=== PATIENT | male | born 1995 | race Caucasian/White ===

== ENCOUNTER 2016-05-12 12:09 | Emergency (ER) | payer SELFPAY ==
[2016-05-12] MEDS ORDERED: HYDROcodone/Acetaminophen 10/325 mg Tablet ONE (13:02)
[2016-05-12] MEDS ORDERED: Ibuprofen 800 MG TAB ONE (13:03)
--- NOTE | 2016-05-12 14:14 | ERRECORD ---
[facility] EMERGENCY RECORD HPI COUGH (12:57 RWAG) CHIEF COMPLAINT: Patient presents for evaluation of cough. HISTORIAN: History provided by patient, "think I have the flu". LOCATION: Symptoms are generalized. QUALITY: Unable to describe the quality of the pain. SEVERITY: Maximum severity of symptoms mild, Currently symptoms are mild, Maximum severity of pain rated as 9/10, Current severity of pain rated as 9/10, pt calm, NAD. TIME COURSE: Patient unable to describe onset of symptoms, There has been no change in the patient's symptoms over time. ASSOCIATED WITH: Associated with chills, Associated with fever. EXACERBATED BY: Patient's condition exacerbated by nothing. RELIEVED BY: Patient's condition relieved by nothing. ROS (12:58 RWAG) CONSTITUTIONAL: Historian reports fever. EYES: Negative eye review of systems. ENT: Negative ears, nose, throat review of systems. CARDIOVASCULAR: Negative cardiovascular review of systems. RESPIRATORY: Historian reports cough. GI: Negative gastrointestinal review of systems. GENITOURINARY MALE: Negative genitourinary review of systems. MUSCULOSKELETAL: Historian reports myalgias. SKIN: Negative skin review of systems. NEUROLOGIC: Negative neurologic review of systems. ENDOCRINE: Negative endocrine review of systems. HEMO/LYMPHATIC: Normal hematologic/lymphatic system review. ALLERGIC/IMMUNOLOGIC: Normal allergy/immunologic system review. PSYCHIATRIC: Negative psychiatric review of systems. NOTES: All systems reviewed, negative except as described above. PAST MEDICAL HISTORY (12:44 JPAR) MEDICAL HISTORY: Flu vaccine not up to date, Tetanus immunization up to date, Date of immunization: 2016, Pneumococcal vaccine not up to date. MALE SURGICAL HISTORY: Hand surgery, Testicular Torsion. SOCIAL HISTORY: Patient drinks socially, twice a month, Alcohol history notes: 6 pack, Patient is a former drug user, abused marijuana, Patient currently uses tobacco, smokes cigarettes, daily, Patient has smoked for 5 years, Patient smokes 1 pack per day. KNOWN ALLERGIES traMADol: Severity: Mild, Source: Patient, - makes headaches worse CURRENT MEDICATIONS &a-1R&a+25V*p+0X*p2522P*c202B*c15G*c2P*p-0X&a-25V&a+1R Name: Delano Cordero Eliseo : 1995 [facility] MedRec: [id number] AcctNum: [id number] Prepared: Sat May 12, 2016 14:12 by Interface Page 1 of 3 pMD [facility] EMERGENCY RECORD No recorded medications VITAL SIGNS (12:39 JPAR) VITAL SIGNS: BP: 140/84, Pulse: 94, Resp: 16, Temp: 100 (Oral), Pain: 9, O2 sat: 97, Time: 05/12/2016 12:39. PHYSICAL EXAM (12:59 RWAG) CONSTITUTIONAL: Patient febrile, temperature of 100, Pulse normal, Blood pressure normal, Respiratory rate normal, Normal pulse oximetry. HEAD: Head exam normal. EYES: Eye exam normal. ENT: ENT exam normal. NECK: Neck exam normal. RESPIRATORY CHEST: Respiratory and chest exam normal. CARDIOVASCULAR: Cardiovascular assessment normal. ABDOMEN MALE: Abdominal exam normal. BACK: Back exam normal. UPPER EXTREMITY: Upper extremity exam normal. NEURO: Neuro exam normal. SKIN: Skin exam normal. LYMPHATIC: Lymphatic exam normal. PSYCHIATRIC: Psychiatric exam normal. MEDICATION ADMINISTRATION SUMMARY Drug Name: Motrin, Dose Ordered: 1 tab(s), Route: Oral, Status: Given, Time: 13:05 05/12/2016, Drug Name: Rochelle, Dose Ordered: 1 tab(s), Route: Oral, Status: Given, Time: 13:05 05/12/2016, Detailed record available in Medication Service section. PROBLEM LIST No recorded problems DIAGNOSIS (13:37 RWAG) FINAL: PRIMARY: influenza. PRESCRIPTION Tamiflu: CAPSULE : 75 mg : ORAL : Quantity: 1 Unit: cap(s) Route: ORAL Schedule: every 12 hours Dispense: 10 Unit: cap(s) May substitute. Refills: No Refills . (13:35 RWAG) NOTES: No Refills. (13:35 RWAG) Motrin: TABLET : 800 mg : ORAL : Quantity: 1 Unit: tab(s) Route: ORAL Schedule: every 8 hours PRN Dispense: 12 Unit: tab(s) May substitute. Refills: No Refills . (13:36 RWAG) NOTES: No Refills. (13:36 RWAG) &a-1R&a+25V*p+0X*e0512T*c202B*c15G*c2P*p-0X&a-25V&a+1R Name: Delano Cordero : 1995 M21 MedRec: [id number] AcctNum: [id number] Prepared: Evan May 12, 2016 14:12 by Interface Page 2 of 3 pMD [facility] EMERGENCY RECORD DISPOSITION PATIENT: Disposition Type: Discharge, Disposition: *Discharge Home, Disposition Transport: Car, Condition: Improved. (13:37 RWAG) Patient left the department. (14:05 MARY) Steiner: MARY=HARLEEN Montes Jason RWAG=MD Milton, Arcadio &a-1R&a+25V*p+0X*n1859F*c202B*c15G*c2P*p-0X&a-25V&a+1R Name: Delano Cordero : 1995 M21 MedRec: [id number] AcctNum: [id number] Prepared: Evan May 12, 2016 14:12 by Interface Page 3 of 3 pMD MTDD
--- NOTE | 2016-05-12 14:21 | PICIS ---
[facility] EMERGENCY RECORD TRIAGE ([facility] May 12, 2016 12:41 JPAR) TRIAGE NOTES: flu Like symptoms/ URI symptoms. ([facility] May 12, 2016 12:41 JPAR) PATIENT: NAME: Delano Cordero, AGE: 21, GENDER: male, : [facility] 1995, TIME OF GREET: Sat May 12, 2016 12:10, PREFERRED LANGUAGE: Arabic, ECODE BILLING MAP: [facility], SSN: [id number], Zip Code: [address], KG WEIGHT: 58.97, PHONE: , , , PERSON ID: [id number]. ([facility] May 12, 2016 12:41 JPAR) COMPLAINT: COUGH,CONGESTION. ([facility] May 12, 2016 12:41 JPAR) ADMISSION: URGENCY: 4 Non Urgent, ADMISSION SOURCE: Home, TRANSPORT: CAR, BED: TRIAGE. ([facility] May 12, 2016 12:41 JPAR) ASSESSMENT: Assessment: URI and Flu Like Symptoms, Symptoms began 2-3 days, Symptoms began 3 days ago. (12:44 JPAR) SIRS SCORING: Heart Rate 55-109 (0), Temp range 96.8-101.1 (0), respiratory rate 12-24 (0), Mental Status altered: no (0), Infection or Suspected Infection: No. (12:44 JPAR) TRIAGE SCREENING: Patient denies suicidal ideation, Patient denies presence of domestic violence. (12:44 JPAR) PROVIDERS: TRIAGE NURSE: Arnie Montes RN. ([facility] May 12, 2016 12:41 JPAR) VITAL SIGNS: BP 140/84, Pulse 94, Resp 16, Temp 100, (Oral), Pain 9, O2 Sat 97, Time 05/12/2016 12:39. (12:39 JPAR) KNOWN ALLERGIES traMADol: Severity: Mild, Source: Patient, - makes headaches worse CURRENT MEDICATIONS No recorded medications VITAL SIGNS (12:39 JPAR) VITAL SIGNS: BP: 140/84, Pulse: 94, Resp: 16, Temp: 100 (Oral), Pain: 9, O2 sat: 97, Time: 05/12/2016 12:39. NURSING ASSESSMENT: HEAD-TO-TOE (13:00 MCBE) CONSTITUTIONAL: Complex assessment performed, Patient arrives ambulatory, Gait steady, History obtained from patient, Patient appears comfortable, Patient cooperative, Patient alert, Oriented to person, place and time, Skin warm, Skin dry, Skin normal in color, Mucous membranes pink, Mucous membranes moist, Patient is well-groomed. PAIN: Patient rates pain as 0 out of 10. NEURO: Pupils equally round and reactive to light, Able to close eyes, Face symmetrical, Speech normal, GCS:, Eye opening: (4) - Spontaneous, Verbal: (5) - Oriented/conversive, Motor: (6) - Obeys commands/Spontaneous, GCS Total: 15. ENT: Ear assessment findings include ear normal to inspection, Nasal assessment findings include nose normal to inspection, Mouth and throat assessment findings include mouth inspection normal. &a-1R&a+25V*p+0X*m2321D*c202B*c15G*c2P*p-0X&a-25V&a+1R Name: Delano Cordero Eliseo : 1995 M21 MedRec: [id number] AcctNum: [id number] Prepared: Sat May 12, 2016 14:18 by Interface Page 1 of 7 pMD [facility] EMERGENCY RECORD RESPIRATORY/CHEST: Breath sounds clear, Respiratory assessment findings include respiratory effort easy, Respirations regular, Conversing normally, Neck and chest exam findings include trachea midline, Chest expansion equal, Chest movement symmetrical, no signs of distress, no retractions noted. CARDIOVASCULAR: Cardiovascular assessment findings include heart rate normal, Heart rhythm normal sinus, Heart sounds normal, S1, S2, Left radial pulse +3(easily palpated, considered normal), Right radial pulse +3(easily palpated, considered normal). ABDOMEN: Abdomen assessment findings include abdomen symmetrical, Abdomen soft, non-tender, Bowel sound normal, no associated nausea, no associated vomiting, no associated diarrhea, no associated constipation. LEFT UPPER EXTREMITY: Left upper extremity assessment findings include capillary refill less than 2 seconds, Skin color normal to hand, Skin temperature to hand warm, Distal sensation intact, Muscle tone normal, radial pulse is +3, brachial pulse is +3, Inspection findings include: No pressure ulcer to the shoulder, Inspection findings include no pressure ulcer to the elbow, Inspection findings include no pressure ulcer. RIGHT UPPER EXTREMITY: Right upper extremity assessment findings include capillary refill less than 2 seconds, Skin color normal to hand, Skin temperature to hand warm, Distal sensation intact, Muscle tone normal, radial pulse is +3, brachial pulse is +3, Inspection findings include: No pressure ulcer to the shoulder, Inspection findings include no pressure ulcer to the elbow, Inspection findings include no pressure ulcer. LEFT LOWER EXTREMITY: Left lower extremity assessment findings include capillary refill less than 2 seconds, Skin color normal, Skin temperature warm, Distal sensation intact, Muscle tone normal, Inspection findings include no pressure ulcers to the hip, Inspection findings include no pressure ulcer to the sacrum, Inspection findings include no pressure ulcer to the heel, Inspection findings include no pressure ulcer. RIGHT LOWER EXTREMITY: Right lower extremity assessment findings include capillary refill less than 2 seconds, Skin color normal, Skin temperature warm, Distal sensation intact, Muscle tone normal, Inspection findings include no pressure ulcers to the hip, Inspection findings include no pressure ulcer to the sacrum, Inspection findings include no pressure ulcer to the heel, Inspection findings include no pressure ulcer. NURSING PROCEDURE: DISCHARGE NOTE (13:41 JPAR) DISCHARGE: Patient discharged to home, ambulating without assistance, family driving, accompanied by //partner, Summary of Care printed/ provided, Patient requested and was provided an electronic copy of Discharge Instructions, Transition record given to patient, Discharge instructions given to patient, Simple or moderate discharge teaching performed, Prescriptions given and instructions on side effects given, Name of prescription(s) given: &a-1R&a+25V*p+0X*h8994H*c202B*c15G*c2P*p-0X&a-25V&a+1R Name: Delano Cordero : 1995 M21 MedRec: [id number] AcctNum: [id number] Prepared: Sat May 12, 2016 14:18 by Interface Page 2 of 7 pMD [facility] EMERGENCY RECORD Tamiflu and Motrin, Medication reconciliation form given, Above person(s) verbalized understanding of discharge instructions and follow-up care, Patient treated and evaluated by physician. BELONGINGS: Belongings and valuables with patient at time of discharge include:, Belongings remain with patient, Valuables remain with patient. SAFETY: Side rails up, Cart/Stretcher in lowest position, Family at bedside, Call light within reach, Hospital ID band on. NURSING PROCEDURE: ENT PATIENT IDENTIFIER: Patient actively involved in identification process, Patient's identity verified by patient stating name, Patient's identity verified by patient stating date, Patient's identity verified by hospital ID bracelet. (13:06 MCBE) Patient actively involved in identification process, Patient's identity verified by patient stating name, Patient's identity verified by patient stating date, Patient's identity verified by hospital ID bracelet, Patient's identity verified by family member. (12:44 JPAR) ENT: ENT care indicated for specimen collection, Nasal swab collected, labeled in the presence of the patient and sent to lab for testing of, influenza A, influenza B, collected by [employer]. (13:06 MCBE) ENT care indicated for specimen collection, Nasal swab collected, labeled in the presence of the patient and sent to lab for testing of, influenza A, influenza B, collected by [employer]. (12:44 JPAR) SAFETY: Side rails up, Cart/Stretcher in lowest position, Family at bedside, Call light within reach, Hospital ID band on. (12:44 JPAR) ORDER DETAILS Order Name: Influenza A&B Ag Screen, Status: Active, Time: 12:52 05/12/2016, User: [facility], - Ordered for: MD Rose Richard, - Entered by: MD Rose Richard - Sat May 12, 2016 12:52, - Quantity: 1. MEDICATION ADMINISTRATION SUMMARY Drug Name: Motrin, Dose Ordered: 1 tab(s), Route: Oral, Status: Given, Time: 13:05 05/12/2016, Drug Name: Montrose, Dose Ordered: 1 tab(s), Route: Oral, Status: Given, Time: 13:05 05/12/2016, Detailed record available in Medication Service section. MEDICATION SERVICE (13:05 [facility]) Motrin: Order: Motrin (ibuprofen) - Dose: 1 tab(s) : Oral Schedule: Now &a-1R&a+25V*p+0X*h4064B*c202B*c15G*c2P*p-0X&a-25V&a+1R Name: Delano Cordero : 1995 M21 MedRec: [id number] AcctNum: [id number] Prepared: Sat May 12, 2016 14:18 by Interface Page 3 of 7 pMD [facility] EMERGENCY RECORD Ordered by: Arcadio Rose MD Entered by: Arcadio Rose MD [facility] May 12, 2016 13:00 , Acknowledged by: Milana Aguilar [facility] May 12, 2016 13:01 Documented as given by: Milana Aguilar [facility] May 12, 2016 13:05 Patient, Medication, Dose, Route and Time verified prior to administration. Amount given: 1 tab, Site: Medication administered P.O., Patient appears Awake and alert- acceptable, Correct patient, time, route, dose and medication confirmed prior to administration, Patient advised of actions and side-effects prior to administration, Allergies confirmed and medications reviewed prior to administration, Patient in position of comfort, Side rails up, Cart in lowest position, Family at bedside, Call light in reach, verified with ermd about dosages. Montrose: Order: Montrose (hydrocodone bitartrate/acetaminophen) - Dose: 1 tab(s) : Oral POTENTIAL ALLERGY REACTION: 'traMADol [tramadol/tramadol HCl]' - Benefits outweigh risks, Not a true drug allergy, Potential interaction discussed with patient/family Schedule: Now Ordered by: Arcadio Rose MD Entered by: Arcadio Rose MD [facility] May 12, 2016 12:56 , Acknowledged by: Milana Aguilar [facility] May 12, 2016 13:01 Documented as given by: Milana Aguilar [facility] May 12, 2016 13:05 Patient, Medication, Dose, Route and Time verified prior to administration. Amount given: 1 tab, Site: Medication administered P.O., Patient appears Awake and alert- acceptable, Correct patient, time, route, dose and medication confirmed prior to administration, Patient advised of actions and side-effects prior to administration, Allergies confirmed and medications reviewed prior to administration, Patient in position of comfort, Side rails up, Cart in lowest position, Family at bedside, Call light in reach, verified with ermd on dosage. HPI COUGH (12:57 RW) CHIEF COMPLAINT: Patient presents for evaluation of cough. HISTORIAN: History provided by patient, "think I have the flu". LOCATION: Symptoms are generalized. QUALITY: Unable to describe the quality of the pain. SEVERITY: Maximum severity of symptoms mild, Currently symptoms are mild, Maximum severity of pain rated as 9/10, Current severity of pain rated as 9/10, pt calm, NAD. TIME COURSE: Patient unable to describe onset of symptoms, There has been no change in the patient's symptoms over time. ASSOCIATED WITH: Associated with chills, Associated with fever. EXACERBATED BY: Patient's condition exacerbated by nothing. RELIEVED BY: Patient's condition relieved by nothing. &a-1R&a+25V*p+0X*m0669T*c202B*c15G*c2P*p-0X&a-25V&a+1R Name: Delano Cordero : 1995 M21 MedRec: [id number] AcctNum: [id number] Prepared: Sat May 12, 2016 14:18 by Interface Page 4 of 7 pMD [facility] EMERGENCY RECORD ROS (12:58 RWAG) CONSTITUTIONAL: Historian reports fever. EYES: Negative eye review of systems. ENT: Negative ears, nose, throat review of systems. CARDIOVASCULAR: Negative cardiovascular review of systems. RESPIRATORY: Historian reports cough. GI: Negative gastrointestinal review of systems. GENITOURINARY MALE: Negative genitourinary review of systems. MUSCULOSKELETAL: Historian reports myalgias. SKIN: Negative skin review of systems. NEUROLOGIC: Negative neurologic review of systems. ENDOCRINE: Negative endocrine review of systems. HEMO/LYMPHATIC: Normal hematologic/lymphatic system review. ALLERGIC/IMMUNOLOGIC: Normal allergy/immunologic system review. PSYCHIATRIC: Negative psychiatric review of systems. NOTES: All systems reviewed, negative except as described above. PAST MEDICAL HISTORY (12:44 JPAR) MEDICAL HISTORY: Flu vaccine not up to date, Tetanus immunization up to date, Date of immunization: 2015, Pneumococcal vaccine not up to date. MALE SURGICAL HISTORY: Hand surgery, Testicular Torsion. SOCIAL HISTORY: Patient drinks socially, twice a month, Alcohol history notes: 6 pack, Patient is a former drug user, abused marijuana, Patient currently uses tobacco, smokes cigarettes, daily, Patient has smoked for 5 years, Patient smokes 1 pack per day. PHYSICAL EXAM (12:59 RWAG) CONSTITUTIONAL: Patient febrile, temperature of 100, Pulse normal, Blood pressure normal, Respiratory rate normal, Normal pulse oximetry. HEAD: Head exam normal. EYES: Eye exam normal. ENT: ENT exam normal. NECK: Neck exam normal. RESPIRATORY CHEST: Respiratory and chest exam normal. CARDIOVASCULAR: Cardiovascular assessment normal. ABDOMEN MALE: Abdominal exam normal. BACK: Back exam normal. UPPER EXTREMITY: Upper extremity exam normal. NEURO: Neuro exam normal. SKIN: Skin exam normal. LYMPHATIC: Lymphatic exam normal. PSYCHIATRIC: Psychiatric exam normal. EVENTS TRANSFER: Triage to Emergency Triage. (12:41 JPAR) &a-1R&a+25V*p+0X*h7691T*c202B*c15G*c2P*p-0X&a-25V&a+1R Name: Delano Cordero : 1995 M21 MedRec: [id number] AcctNum: [id number] Prepared: Sat May 12, 2016 14:18 by Interface Page 5 of 7 pMD [facility] EMERGENCY RECORD Emergency Triage to Emergency Room -04. (12:42 JPAR) Removed from Emergency Emergency Room -04. (14:05 JPAR) PROBLEM LIST No recorded problems DIAGNOSIS (13:37 RWAG) FINAL: PRIMARY: influenza. DISPOSITION PATIENT: Disposition Type: Discharge, Disposition: *Discharge Home, Disposition Transport: Car, Condition: Improved. (13:37 RWAG) Patient left the department. (14:05 JPAR) INSTRUCTION (13:37 RWAG) DISCHARGE: FLU ADULT. FOLLOWUP: Follow up with Primary Care Physician in 3-4 days. SPECIAL: Follow-up with your PCP. PRESCRIPTION Tamiflu: CAPSULE : 75 mg : ORAL : Quantity: 1 Unit: cap(s) Route: ORAL Schedule: every 12 hours Dispense: 10 Unit: cap(s) May substitute. Refills: No Refills . (13:35 RWAG) NOTES: No Refills. (13:35 RWAG) Motrin: TABLET : 800 mg : ORAL : Quantity: 1 Unit: tab(s) Route: ORAL Schedule: every 8 hours PRN Dispense: 12 Unit: tab(s) May substitute. Refills: No Refills . (13:36 RWAG) NOTES: No Refills. (13:36 RWAG) IMAGING (13:47 JPAR) *DISCHARGE INSTRUCTIONS RECEIPT: Image captured from scanner. *SUPPLY CHARGE SHEET: Image captured from scanner. ADMIN (14:09 RWAG) DIGITAL SIGNATURE: MD Rose Richard. RESULTS (13:33 [facility]) MICROBIOLOGY: Influenza A&B Ag Screen: [id number] Collection DT: Sat May 12, 2016 13:05, See comment below , @ ER ROOM#: ER-04 Source: Nasal swab Spec Desc: , *Influenza A Antigen: POSITIVE for the , * presence of , * INFLUENZA A Antigen , * - H , Influenza B Antigen: NEGATIVE for the , presence of , &a-1R&a+25V*p+0X*o3569T*c202B*c15G*c2P*p-0X&a-25V&a+1R Name: Delano Cordero : 1995 M21 MedRec: [id number] AcctNum: [id number] Prepared: [facility] May 12, 2016 14:18 by Interface Page 6 of 7 pMD [facility] EMERGENCY RECORD INFLUENZA B Antigen , The rapid Flu A&B test can distinguish between influenza A , Influenza A&B Ag Screen See comment below , and B viruses, but it does not differentiate influenza , Influenza A&B Ag Screen See comment below , subtypes. , Influenza A&B Ag Screen See comment below , Influenza A&B Ag Screen See comment below , Influenza A&B Ag Screen See comment below , Influenza A&B Ag Screen See comment below , characteristics of this device with human specimens infected , Influenza A&B Ag Screen See comment below , with the 2008 H1N1 influenza virus have not been , Influenza A&B Ag Screen See comment below , established. For example: this test cannot distinguish , Influenza A&B Ag Screen See comment below , influenza infections caused by novel H1N1 influenza A , Influenza A&B Ag Screen See comment below , viruses versus seasonal influenza A viruses. , Influenza A&B Ag Screen See comment below , , Influenza A&B Ag Screen See comment below , A negative result does not exclude influenza virus , Influenza A&B Ag Screen See comment below , infection; therefore, if more conclusive testing is desired, , Influenza A&B Ag Screen See comment below , follow up confirmatory testing is warranted., Influenza A&B Ag Screen See comment below . Steiner: MARY=HARLEEN Montes Jason MCBE=Milana Aguilar RWAG=MD Rose Richard &a-1R&a+25V*p+0X*j6800H*c202B*c15G*c2P*p-0X&a-25V&a+1R Name: Bret Corderoon Eliseo : 1995 1 MedRec: [id number] AcctNum: [id number] Prepared: Evan May 12, 2016 14:18 by Interface Page 7 of 7 pMD MTDD
== END 2016-05-12 13:41 | disposition home or self-care (01) ==
LOC: NAV ERS 12:09
DX: J11.1 Influenza due to unidentified influenza virus with other respiratory manifestations (principal); F17.210 Nicotine dependence, cigarettes, uncomplicated
CPT/HCPCS: 99283

== ENCOUNTER 2016-05-23 20:03 | Emergency (ER) | payer SELFPAY ==
[2016-05-23] MEDS ORDERED: Ipratropium Bromide 2.5 ml Neb ONE (20:23)
[2016-05-23] MEDS ORDERED: Albuterol Sulfate 2.5 mg/0.5 ml Neb ONE (20:23)
[2016-05-23] MEDS ORDERED: predniSONE 20 MG TAB ONE (20:23)
[2016-05-23] MEDS ORDERED: Acetaminophen 500 MG TAB ONE (20:23)
[2016-05-23] MEDS ORDERED: Ibuprofen 800 MG TAB ONE (21:10)
--- NOTE | 2016-05-23 21:12 | RAD ---
PA AND LATERAL VIEWS CHEST 05/23/16 HISTORY: Cough and fever. FINDINGS: The heart size is normal. The lungs are well expanded without confluent areas of consolidation, pneu mothorax or pleural effusions. No acute osseous abnormalities are seen. IMPRESSION: No acute process. POS: [facility]
--- NOTE | 2016-05-23 22:02 | ERRECORD ---
[facility] EMERGENCY RECORD HPI COUGH (23:09 BLEW) CHIEF COMPLAINT: Patient presents for evaluation of cough. HISTORIAN: History provided by patient, patient diagnosed with flu about 9 days ago. presents due to continued fever and coughing. Some post-tussive vomiting as well. no sputum production. no meds taken currently. No other sx. Fever to 101. LOCATION: Symptoms are generalized. QUALITY: Symptoms described as tightness. SEVERITY: Maximum severity of symptoms moderate, Currently symptoms are moderate. TIME COURSE: Gradual onset of symptoms, are constant. ASSOCIATED WITH: No associated diarrhea, No associated diaphoresis, No associated dyspnea on exertion, Associated with fever, No associated hyperventilation, No associated nausea, No associated orthopnea, No associated palpitations, No associated peripheral edema, No associated pleuritic symptoms, No associated stridor, Associated with upper respiratory infection. EXACERBATED BY: Patient's condition exacerbated by deep breaths, Patient's condition exacerbated by exercise, Patient's condition exacerbated by smoking. RELIEVED BY: Patient's condition relieved by nothing. ROS (23:11 BLEW) CONSTITUTIONAL: Historian reports fever. ENT: Historian denies stridor. CARDIOVASCULAR: Historian denies diaphoresis, denies dyspnea on exertion, denies orthopnea, denies palpitations. RESPIRATORY: Historian reports cough, denies stridor. GI: Historian denies diarrhea, denies nausea. NOTES: All systems reviewed, negative except as described above. PAST MEDICAL HISTORY (20:21 LHAL) MEDICAL HISTORY: Notes: STATES GETS MALIGNANT HYPOTHERMIA AFTER SURGERY, Flu vaccine not up to date, Tetanus immunization up to date, Pneumococcal vaccine not up to date, Past medical history includes musculoskeletal disorder, LEFT FINGER SURGERY, Past medical history includes neurological disease, migraine headaches, Flu vaccine not up to date, Tetanus immunization up to date, Date of immunization: 2016, Pneumococcal vaccine not up to date. MALE SURGICAL HISTORY: Hand surgery, Testicular Torsion. SOCIAL HISTORY: Patient drinks socially, twice a month, Alcohol history notes: 6 pack, Patient is a former drug user, abused marijuana, Patient currently uses tobacco, smokes cigarettes, daily, Patient has smoked for 5 years, Patient smokes 1 pack per day. KNOWN ALLERGIES &a-1R&a+25V*p+0X*[id number]*c202B*c15G*c2P*p-0X&a-25V&a+1R Name: Delano Cordero : 1995 M21 MedRec: [id number] AcctNum: [id number] Prepared: Martha May 24, 2016 08:03 by Interface Page 1 of 3 pMD [facility] EMERGENCY RECORD traMADol: Severity: Mild, Source: Patient, - makes headaches worse CURRENT MEDICATIONS (20:19 LHAL) None VITAL SIGNS VITAL SIGNS: BP: 137/67 (Sitting), Pulse: 112 (Regular), Resp: 16 (Non-Labored), Temp: 100.7 (Oral), Pain: (Constant), O2 sat: 98 on Room Air, Time: 05/23/2016 20:07. (20:07 LHAL) BP: 116/65 (Sitting), Pulse: 113 (Regular), Resp: 16 (Non-Labored), Temp: 101.8 (Oral), Pain: 9 (Constant), O2 sat: 98 on Room Air, Time: 05/23/2016 21:06. (21:06 LHAL) Pain: 9 (Constant), Time: 05/23/2016 20:07. (20:07 LHAL) PHYSICAL EXAM (23:11 BLEW) CONSTITUTIONAL: Vital signs reviewed, Patient appears non toxic, Patient alert and oriented to person, place and time, Pt is in no apparent distress. HEAD: Head exam included findings of head atraumatic, normocephalic. EYES: Eye exam included findings of eyelids normal to inspection, Pupils equally round and reactive to light, Extraocular muscles intact. ENT: ENT exam normal, Nose exam normal, no nasal deformity, no bleeding from nares, Pharynx exam normal, Mouth exam normal, mucous membranes moist. NECK: Neck exam included findings of normal range of motion, Trachea midline. RESPIRATORY CHEST: Respiratory and chest exam normal, Breath sounds demonstrate wheezing in all fierro with general decrease in air movement. No rales, Chest exam included findings of chest movement symmetrical, Chest expansion equal. CARDIOVASCULAR: Cardiovascular assessment normal, Cardiovascular exam included findings of heart rate regular rate and rhythm, Heart sounds normal. BACK: Back exam included findings of normal inspection, range of motion normal, no costovertebral angle tenderness. UPPER EXTREMITY: Upper extremity exam included findings of inspection normal, Range of motion normal. LOWER EXTREMITY: Lower extremity exam included findings of inspection normal, Range of motion normal. NEURO: Neuro exam findings include patient oriented to person, place and time, Speech normal, no focal motor deficits, no focal sensory deficits. SKIN: Skin exam included findings of skin warm, dry, and normal in color. LYMPHATIC: Lymphatic exam normal. PSYCHIATRIC: Psychiatric exam included findings of patient oriented to person place and time, Normal affect. &a-1R&a+25V*p+0X*[id number]*c202B*c15G*c2P*p-0X&a-25V&a+1R Name: Delano Cordero : 1995 M21 MedRec: [id number] AcctNum: [id number] Prepared: Martha May 24, 2016 08:03 by Interface Page 2 of 3 pMD [facility] EMERGENCY RECORD MEDICATION ADMINISTRATION SUMMARY Drug Name: *Motrin, Dose Ordered: 800 mg, Route: Oral, Status: Given, Time: 21:12 05/23/2016, Drug Name: ipratropium bromide inhalation, Dose Ordered: 0.5 mg, Route: Nebulize, Status: Given, Time: 20:25 05/23/2016, Drug Name: albuterol sulfate inhalation, Dose Ordered: 5 mg, Route: Nebulize, Status: Given, Time: 20:25 05/23/2016, Drug Name: predniSONE oral, Dose Ordered: 60 mg, Route: Oral, Status: Given, Time: 20:23 05/23/2016, Drug Name: Tylenol Extra Strength, Dose Ordered: 1 g, Route: Oral, Status: Given, Time: 20:23 05/23/2016, *Additional information available in notes, Detailed record available in Medication Service section. DOCTOR NOTES (23:12 BLEW) TEXT: Patient breathing much better after nebs. CXR negative. Coughing also improved. No other etiology for fever. Cagle tart steroids and B agonists at home. PROBLEM LIST No recorded problems DIAGNOSIS (21:38 LHAL) FINAL: PRIMARY: REACTIVE AIRWAY DISEASE, ADDITIONAL: ACUTE BRONCHOSPASM. PRESCRIPTION (20:22 BLEW) albuterol sulfate inhalation: HFA AEROSOL WITH ADAPTER (GM) : 90 mcg : INHALATION : Quantity: 2 Unit: puff(s) Route: INHALATION Schedule: every 2 hours Dispense: 1 May substitute. Refills: No Refills . NOTES: Use every four hours while awake for the next 2 days and then when needed. May substitute Xopenex No Refills. predniSONE oral: TABLET : 20 mg : ORAL : Quantity: 3 Unit: tab(s) Route: ORAL Schedule: once a day (after a meal) Dispense: 15 May substitute. Refills: No Refills . NOTES: No Refills. DISPOSITION (21:38 [facility]) PATIENT: Disposition Type: Discharge, Disposition: *Discharge Home, Disposition Transport: Ambulatory, Condition: Good, Patient left the department. Steiner: ZOË=DO Buchanan Brandon LHAL=HARLEEN Salcedo, Heather &a-1R&a+25V*p+0X*[id number]*c202B*c15G*c2P*p-0X&a-25V&a+1R Name: Delano Cordero : 1995 M21 MedRec: [id number] AcctNum: [id number] Prepared: Martha May 24, 2016 08:03 by Interface Page 3 of 3 pMD MTDD
--- NOTE | 2016-05-23 22:05 | PICIS ---
[facility] EMERGENCY RECORD TRIAGE (20:19 LHAL) TRIAGE NOTES: SEEN HERE 2 WK AGO DIAG WITH FLU A, STATES NEVER GOT BETTER, AND WORSE X 3 DAYS, COUGH , GRANADOS, FEVER. (20:19 LHAL) PATIENT: NAME: Delano Cordero, AGE: 21, GENDER: male, : Martha 1995, TIME OF GREET: SatMay 23, 2016 20:05, PREFERRED LANGUAGE: Swedish, ETHNICITY: Not or , ECODE BILLING MAP: [facility], SSN: [id number], Zip Code: [address], KG WEIGHT: 58.97, PHONE: , , , PERSON ID: [id number], PCP: NONE. (20:19 LHAL) COMPLAINT: COUGH, HEADACHE. (20:19 LHAL) ADMISSION: URGENCY: 4 Non Urgent, ADMISSION SOURCE: Home, TRANSPORT: CAR, BED: ER -03. (20:19 LHAL) ASSESSMENT: Assessment: FEVER X 2 WKS, COUGH, BODYACHES, Symptoms began 2 WKS AGO, WORSE X 3 DAYS. (20:21 LHAL) PAIN: Patient complains of pain described as, aching, on a scale 0-10 patient rates pain as 9, Pain is constant, No aggravating factors, No relieving factors. (20:21 LHAL) SIRS SCORING: Heart Rate 110-139 (2), Temp range 96.8-101.1 (0), respiratory rate 12-24 (0), Mental Status altered: no (0), Yes, Infection or Suspected Infection. (20:21 LHAL) IMMUNIZATIONS: Flu vaccine not up to date, Tetanus immunization up to date, Pneumococcal vaccine not up to date, Notes: NOTHING TODAY. (20:21 LHAL) TRIAGE SCREENING: Patient denies suicidal ideation, Patient denies presence of domestic violence. (20:21 LHAL) PROVIDERS: TRIAGE NURSE: Heather Salcedo RN. (20:19 LHAL) VITAL SIGNS: BP 137/67, (Sitting), Pulse 112, (Regular), Resp 16, (Non-Labored), Temp 100.7, (Oral), (Constant), O2 Sat 98, on Room Air, Time 05/23/2016 20:07. (20:07 LHAL) PREVIOUS VISIT ALLERGIES: traMADol. (20:19 LHAL) traMADol. (20:21 LHAL) KNOWN ALLERGIES traMADol: Severity: Mild, Source: Patient, - makes headaches worse CURRENT MEDICATIONS (20:19 LHAL) None VITAL SIGNS VITAL SIGNS: BP: 137/67 (Sitting), Pulse: 112 (Regular), Resp: 16 (Non-Labored), Temp: 100.7 (Oral), Pain: (Constant), O2 sat: 98 on Room Air, Time: 05/23/2016 20:07. (20:07 LHAL) BP: 116/65 (Sitting), Pulse: 113 (Regular), Resp: 16 (Non-Labored), Temp: 101.8 (Oral), Pain: 9 (Constant), O2 sat: 98 on Room Air, Time: 05/23/2016 21:06. (21:06 LHAL) Pain: 9 (Constant), Time: 05/23/2016 20:07. (20:07 LHAL) &a-1R&a+25V*p+0X*u0158T*c202B*c15G*c2P*p-0X&a-25V&a+1R Name: Delano Cordero : 1995 M21 MedRec: [id number] AcctNum: [id number] Prepared: [facility] May 24, 2016 08:08 by Interface Page 1 of 8 pMD [facility] EMERGENCY RECORD NURSING ASSESSMENT: FOCUSED (20:19 LHAL) CONSTITUTIONAL: Patient arrives ambulatory, Gait steady, History obtained from patient, Patient appears, uncomfortable, Patient cooperative, Patient alert, Oriented to person, place and time, Skin warm, Skin dry, Skin normal in color, Mucous membranes pink, Mucous membranes moist, Patient is well-groomed, Patient complains of BODY ACHES, FEVER, GRANADOS X 2 WKS, 2012) AMBULATES TO BED 3 ON ER ARRIVAL STEADY GAIT. PAIN: aching pain, GENERALIZED BODY ACHES, Onset of pain 2 WKS AGO, WORSE LAST 3 DAYS, constant, on a scale 0-10 patient rates pain as 9, NOTHING TODAY, Pain exacerbated by nothing. EYES: Focused eye assessment finding include pupils equally round and reactive to light, Left pupil 3 mm in size, Right pupil 3 mm in size. NEURO: Focused neuro assessment findings include patient alert, cooperative, No facial droop noted, Speech coherent, no weakness, no numbness, No loss of consciousness, Notes: GENERALIZED MALAISE, FATIGUE. GCS: GCS Total: 15. RESPIRATORY: Breath sounds with rhonchi, Breath sounds with wheezing, scattered, Breath sounds otherwise clear, Notes: FREQUENT DRY COUGH, PARTNER HAS SAME DRY COUGH, PT SMOKES 1 PPD CIG. ABDOMEN: Focused abdominal assessment findings include abdomen soft, non tender, no constipation, no diarrhea, no complaint of nausea, Vomiting, Number of times: X3 WHEN COUGHING, Description: FOOD, Bowel sounds present. GENITOURINARY: Focused genitourinary assessment not applicable. MUSCULOSKELETAL: Focused musculoskeletal assessment findings include normal range of motion. LACERATION: Focused laceration assessment not applicable. NOTES: Notes: STATES WAS DIAG HERE IN ER 2 WK AGO WITH FLU A, NO ER FOLLOWUP DUE TO NO INSURANCE, HASN'T FELT ANY BETTER SINCE VISIT 2 WK AGO, AND FEELS WORSE X 3 DAYS. NURSING PROCEDURE: DISCHARGE NOTE (21:20 LHAL) DISCHARGE: Patient discharged to home, ambulating without assistance, family driving, accompanied by //partner, Summary of Care printed/ provided, Patient requested and was provided an electronic copy of Discharge Instructions, Transition record given to patient, Discharge instructions given to patient, Simple or moderate discharge teaching performed, by Kayla SALCEDO RN, Prescriptions given and instructions on side effects given, Name of prescription(s) given: ALBUTEROL INHALER, PREDNISONE, Medication reconciliation form given, and reviewed with patient, Above person(s) verbalized understanding of discharge instructions and follow-up care, Notes: DC HOME STABLE, OCCASIONAL DRY COUGH, GENERALIZED BODY ACHES, STABLE, A&OX3, SKIN PINK W/D, NORMAL EVEN RESP, AMBULATES STEADY &a-1R&a+25V*p+0X*g0662P*c202B*c15G*c2P*p-0X&a-25V&a+1R Name: Delano Cordero : 1995 M21 MedRec: [id number] AcctNum: [id number] Prepared: Martha May 24, 2016 08:08 by Interface Page 2 of 8 pMD [facility] EMERGENCY RECORD GAIT. BELONGINGS: Belongings and valuables with patient upon arrival to the Emergency Department include:. NURSING PROCEDURE: NURSE NOTES NURSES NOTES: Patient in no apparent distress, Patient resting quietly, Notes: STATES FEELS NO BETTER LUNGS CLEAR XRAY RESULTS PENDING. (20:57 LHAL) Patient re-evaluated by physician. (21:18 LHAL) NURSING PROCEDURE: RESPIRATORY INTERVENTIONS PATIENT IDENTIFIER: Patient actively involved in identification process, Patient's identity verified by patient stating name, Patient's identity verified by patient stating date, Patient's identity verified by hospital ID braangel luiset, Patient's identity verified by family member. (20:25 LHAL) RESPIRATORY INTERVENTIONS: Respiratory interventions indicated for wheezing, Pre-intervention breath sounds with rhonchi, Breath sounds otherwise clear, Pre-intervention oxygen saturation 98%, by adult/pediatric oxisensor, single pulse oximetry reading, Patient given ALBUTEROL, Patient given ATROVENT, 1, Single dose nebulizer, Dose: UNIT DOSE, Patient returned deomonstration of use of incentive spirometry. (20:25 LHAL) FOLLOW-UP: After procedure, oxygen saturation 99%, on room air, After procedure, breath sounds clear, to bilateral upper lobes, to bilateral lower lobes. (20:59 LHAL) NURSING PROCEDURE: TRANSPORT TO TESTS (20:38 KHER) PATIENT IDENTIFIER: Patient actively involved in identification process. TRANSPORT TO TESTS: Transport indicated to facilitate diagnosis, Patient transported to x-ray, via cart, Accompanied by x-ray ip/mosaic technician, Patient arrived in location at 2038, Patient departed location at 2046. FOLLOW-UP: After procedure, patient returned to emergency department. ORDER DETAILS Order Name: ERRT * Smal Vol Neb Initial Trmt, Status: Active, Time: 20:21 05/23/2016, User: ZOË, - Ordered for: DO Buchanan Brandon, - Entered by: DO Buchanan Brandon - SatMay 23, 2016 20:21, - Quantity: 1, Order Name: XR Chest Pa & Lat STANDARD, Status: Active, Time: 20:21 05/23/2016, User: ZOË, - Ordered for: DO Buchanan Brandon, - Entered by: DO Buchanan Brandon - SatMay 23, 2016 20:21, - Quantity: 1. &a-1R&a+25V*p+0X*y3014D*c202B*c15G*c2P*p-0X&a-25V&a+1R Name: Delano Cordero : 1995 M21 MedRec: [id number] AcctNum: [id number] Prepared: Martha May 24, 2016 08:08 by Interface Page 3 of 8 pMD [facility] EMERGENCY RECORD MEDICATION ADMINISTRATION SUMMARY Drug Name: *Motrin, Dose Ordered: 800 mg, Route: Oral, Status: Given, Time: 21:12 05/23/2016, Drug Name: ipratropium bromide inhalation, Dose Ordered: 0.5 mg, Route: Nebulize, Status: Given, Time: 20:25 05/23/2016, Drug Name: albuterol sulfate inhalation, Dose Ordered: 5 mg, Route: Nebulize, Status: Given, Time: 20:25 05/23/2016, Drug Name: predniSONE oral, Dose Ordered: 60 mg, Route: Oral, Status: Given, Time: 20:23 05/23/2016, Drug Name: Tylenol Extra Strength, Dose Ordered: 1 g, Route: Oral, Status: Given, Time: 20:23 05/23/2016, *Additional information available in notes, Detailed record available in Medication Service section. MEDICATION SERVICE albuterol sulfate inhalation: Order: albuterol sulfate inhalation (albuterol sulfate) - Dose: 5 mg : Nebulize Ordered by: Delano Buchanan DO Entered by: Delano Buchanan DO SatMay 23, 2016 20:21 Documented as given by: Heather Salcedo RN SatMay 23, 2016 20:25 Patient, Medication, Dose, Route and Time verified prior to administration. Amount given: 5 MG, Site: Medication administered via Hand-held nebulizer, With oxygen, Correct patient, time, route, dose and medication confirmed prior to administration, Patient advised of actions and side-effects prior to administration, Allergies confirmed and medications reviewed prior to administration, Administered by Kayla SALCEDO RN, Patient in position of comfort, Side rails up, Cart in lowest position, Family at bedside. : Follow Up : No signs or symptoms of allergic reaction noted, Breath sounds improved. (20:59 LHAL) ipratropium bromide inhalation: Order: ipratropium bromide inhalation (ipratropium bromide) - Dose: 0.5 mg : Nebulize Ordered by: Delano Buchanan DO Entered by: Delano Buchanan DO SatMay 23, 2016 20:21 Documented as given by: Heather Salcedo RN SatMay 23, 2016 20:25 Patient, Medication, Dose, Route and Time verified prior to administration. Amount given: 0.5 MG, Site: Medication administered via Hand-held nebulizer, With oxygen, Correct patient, time, route, dose and medication confirmed prior to administration, Patient advised of actions and side-effects prior to administration, Allergies confirmed and medications reviewed prior to administration, Administered by Kayla SALCEDO RN, Patient in position of comfort, Side rails up, Cart in lowest position, Family at bedside. : Follow Up : No signs or symptoms of allergic reaction noted, Breath sounds improved. (20:59 LHAL) Motrin: Order: Motrin (ibuprofen) - Dose: 800 mg : &a-1R&a+25V*p+0X*n1829W*c202B*c15G*c2P*p-0X&a-25V&a+1R Name: Delano Cordero Eliseo : 1995 M21 MedRec: [id number] AcctNum: [id number] Prepared: [facility] May 24, 2016 08:08 by Interface Page 4 of 8 pMD [facility] EMERGENCY RECORD Oral Schedule: Now Notes: TOV DR BUCHANAN Ordered by: Delano Buchanan DO Entered by: Heather Salcedo RN SatMay 23, 2016 21:33 Documented as given by: Heather Salcedo RN SatMay 23, 2016 21:12 Patient, Medication, Dose, Route and Time verified prior to administration. Amount given: 800 MG, Site: Medication administered P.O., Correct patient, time, route, dose and medication confirmed prior to administration, Patient advised of actions and side-effects prior to administration, Allergies confirmed and medications reviewed prior to administration, Administered by Kayla SALCEDO RN, Patient in position of comfort, Side rails up, Cart in lowest position, Family at bedside. : Follow Up : No signs or symptoms of allergic reaction noted. (21:20 LHAL) predniSONE oral: Order: predniSONE oral (prednisone) - Dose: 60 mg : Oral Ordered by: Delano Buchanan DO Entered by: Delano Buchanan DO SatMay 23, 2016 20:21 Documented as given by: Heather Salcedo RN SatMay 23, 2016 20:23 Patient, Medication, Dose, Route and Time verified prior to administration. Amount given: 60 MG, Site: Medication administered P.O., Correct patient, time, route, dose and medication confirmed prior to administration, Patient advised of actions and side-effects prior to administration, Allergies confirmed and medications reviewed prior to administration, Administered by Kayla SALCEDO RN, Patient in position of comfort, Side rails up, Cart in lowest position, Family at bedside. : Follow Up : No signs or symptoms of allergic reaction noted. (21:00 LHAL) Tylenol Extra Strength: Order: Tylenol Extra Strength (acetaminophen) - Dose: 1 g : Oral Ordered by: Delano Buchanan DO Entered by: Delano Buchanan DO SatMay 23, 2016 20:22 Documented as given by: Heather Salcedo RN SatMay 23, 2016 20:23 Patient, Medication, Dose, Route and Time verified prior to administration. Amount given: 1000 MG, Site: Medication administered P.O., Correct patient, time, route, dose and medication confirmed prior to administration, Patient advised of actions and side-effects prior to administration, Allergies confirmed and medications reviewed prior to administration, Administered by Kayla SALCEDO RN, Patient in position of comfort, Side rails up, Cart in lowest position, Family at bedside. : Follow Up : No signs or symptoms of allergic reaction noted. (21:15 LHAL) HPI COUGH (23:09 BLEW) CHIEF COMPLAINT: Patient presents for evaluation of cough. HISTORIAN: History provided by patient, &a-1R&a+25V*p+0X*h8382B*c202B*c15G*c2P*p-0X&a-25V&a+1R Name: Delano Cordero Eliseo : 1995 M21 MedRec: [id number] AcctNum: [id number] Prepared: SatMay 24, 2016 08:08 by Interface Page 5 of 8 pMD [facility] EMERGENCY RECORD patient diagnosed with flu about 9 days ago. presents due to continued fever and coughing. Some post-tussive vomiting as well. no sputum production. no meds taken currently. No other sx. Fever to 101. LOCATION: Symptoms are generalized. QUALITY: Symptoms described as tightness. SEVERITY: Maximum severity of symptoms moderate, Currently symptoms are moderate. TIME COURSE: Gradual onset of symptoms, are constant. ASSOCIATED WITH: No associated diarrhea, No associated diaphoresis, No associated dyspnea on exertion, Associated with fever, No associated hyperventilation, No associated nausea, No associated orthopnea, No associated palpitations, No associated peripheral edema, No associated pleuritic symptoms, No associated stridor, Associated with upper respiratory infection. EXACERBATED BY: Patient's condition exacerbated by deep breaths, Patient's condition exacerbated by exercise, Patient's condition exacerbated by smoking. RELIEVED BY: Patient's condition relieved by nothing. ROS (23:11 BLEW) CONSTITUTIONAL: Historian reports fever. ENT: Historian denies stridor. CARDIOVASCULAR: Historian denies diaphoresis, denies dyspnea on exertion, denies orthopnea, denies palpitations. RESPIRATORY: Historian reports cough, denies stridor. GI: Historian denies diarrhea, denies nausea. NOTES: All systems reviewed, negative except as described above. PAST MEDICAL HISTORY (20:21 LHAL) MEDICAL HISTORY: Notes: STATES GETS MALIGNANT HYPOTHERMIA AFTER SURGERY, Flu vaccine not up to date, Tetanus immunization up to date, Pneumococcal vaccine not up to date, Past medical history includes musculoskeletal disorder, LEFT FINGER SURGERY, Past medical history includes neurological disease, migraine headaches, Flu vaccine not up to date, Tetanus immunization up to date, Date of immunization: 2015, Pneumococcal vaccine not up to date. MALE SURGICAL HISTORY: Hand surgery, Testicular Torsion. SOCIAL HISTORY: Patient drinks socially, twice a month, Alcohol history notes: 6 pack, Patient is a former drug user, abused marijuana, Patient currently uses tobacco, smokes cigarettes, daily, Patient has smoked for 5 years, Patient smokes 1 pack per day. PHYSICAL EXAM (23:11 BLEW) CONSTITUTIONAL: Vital signs reviewed, Patient appears non toxic, Patient alert and oriented to person, place and time, Pt is in no apparent distress. &a-1R&a+25V*p+0X*p4683S*c202B*c15G*c2P*p-0X&a-25V&a+1R Name: Delano Cordero : 1995 M21 MedRec: [id number] AcctNum: [id number] Prepared: [facility] May 24, 2016 08:08 by Interface Page 6 of 8 pMD [facility] EMERGENCY RECORD HEAD: Head exam included findings of head atraumatic, normocephalic. EYES: Eye exam included findings of eyelids normal to inspection, Pupils equally round and reactive to light, Extraocular muscles intact. ENT: ENT exam normal, Nose exam normal, no nasal deformity, no bleeding from nares, Pharynx exam normal, Mouth exam normal, mucous membranes moist. NECK: Neck exam included findings of normal range of motion, Trachea midline. RESPIRATORY CHEST: Respiratory and chest exam normal, Breath sounds demonstrate wheezing in all fierro with general decrease in air movement. No rales, Chest exam included findings of chest movement symmetrical, Chest expansion equal. CARDIOVASCULAR: Cardiovascular assessment normal, Cardiovascular exam included findings of heart rate regular rate and rhythm, Heart sounds normal. BACK: Back exam included findings of normal inspection, range of motion normal, no costovertebral angle tenderness. UPPER EXTREMITY: Upper extremity exam included findings of inspection normal, Range of motion normal. LOWER EXTREMITY: Lower extremity exam included findings of inspection normal, Range of motion normal. NEURO: Neuro exam findings include patient oriented to person, place and time, Speech normal, no focal motor deficits, no focal sensory deficits. SKIN: Skin exam included findings of skin warm, dry, and normal in color. LYMPHATIC: Lymphatic exam normal. PSYCHIATRIC: Psychiatric exam included findings of patient oriented to person place and time, Normal affect. EVENTS TRANSFER: Triage to Emergency Emergency Room -03. (SatMay 23, 2016 20:19 LHAL) Removed from Emergency Emergency Room -03. (21:38 LHAL) DOCTOR NOTES (23:12 BLEW) TEXT: Patient breathing much better after nebs. CXR negative. Coughing also improved. No other etiology for fever. Cagle tart steroids and B agonists at home. PROBLEM LIST No recorded problems DIAGNOSIS (21:38 LHAL) FINAL: PRIMARY: REACTIVE AIRWAY DISEASE, ADDITIONAL: ACUTE BRONCHOSPASM. DISPOSITION (21:38 LHAL) &a-1R&a+25V*p+0X*u7531K*c202B*c15G*c2P*p-0X&a-25V&a+1R Name: Delano Cordero : 1995 M21 MedRec: [id number] AcctNum: [id number] Prepared: [facility] May 24, 2016 08:08 by Interface Page 7 of 8 pMD [facility] EMERGENCY RECORD PATIENT: Disposition Type: Discharge, Disposition: *Discharge Home, Disposition Transport: Ambulatory, Condition: Good, Patient left the department. INSTRUCTION (20:24 BLEW) DISCHARGE: REACTIVE AIRWAY DISEASE ADULT: BRONCHOSPASM, SMOKING CESSATION. FOLLOWUP: [facility], /[facility], [address] [address], , Follow up with Primary Care Physician in 3-4 days. SPECIAL: Use the inhaler every 4 hours for the first two days, even if you don't think you need it. Call your doctor or return with worsening or worrisome symptoms. PRESCRIPTION (20:22 BLEW) albuterol sulfate inhalation: HFA AEROSOL WITH ADAPTER (GM) : 90 mcg : INHALATION : Quantity: 2 Unit: puff(s) Route: INHALATION Schedule: every 2 hours Dispense: 1 May substitute. Refills: No Refills . NOTES: Use every four hours while awake for the next 2 days and then when needed. May substitute Xopenex No Refills. predniSONE oral: TABLET : 20 mg : ORAL : Quantity: 3 Unit: tab(s) Route: ORAL Schedule: once a day (after a meal) Dispense: 15 May substitute. Refills: No Refills . NOTES: No Refills. IMAGING (21:25 [facility]) *DISCHARGE INSTRUCTIONS RECEIPT: Image captured from scanner. *SUPPLY CHARGE SHEET: Image captured from scanner. ADMIN DIGITAL SIGNATURE: HARLEEN Salcedo Linda. (21:36 LHAL) HARLEEN Salcedo Linda. (21:39 LHAL) DO Buchanan Brandon. (Martha May 24, 2016 08:00 BLEW) Steiner: ZOË=DO Buchanan Brandon KHPHU=MARISEL Nelson Kayce LHAL=HARLEEN Salcedo Linda &a-1R&a+25V*p+0X*u7056D*c202B*c15G*c2P*p-0X&a-25V&a+1R Name: Delano Cordero : 1995 M21 MedRec: [id number] AcctNum: [id number] Prepared: Martha May 24, 2016 08:08 by Interface Page 8 of 8 pMD MTDD
== END 2016-05-23 21:20 | disposition home or self-care (01) ==
LOC: NAV ERS 20:03
DX: J45.909 Unspecified asthma, uncomplicated (principal); J98.01 Acute bronchospasm; G43.909 Migraine, unspecified, not intractable, without status migrainosus; F17.210 Nicotine dependence, cigarettes, uncomplicated
CPT/HCPCS: 71020; 94640; J7506; J7611; J7644

== ENCOUNTER 2018-01-14 16:24 | Emergency (ER) | payer SELFPAY ==
[2018-01-14] MEDS ORDERED: Ondansetron HCl/PF 4 MG/2 ML Vial ONE (16:39)
[2018-01-14] MEDS ORDERED: Acetaminophen 500 MG TAB ONE (16:39)
[2018-01-14] MEDS ORDERED: Sodium Chloride 0.9% 1,000 ML ONE ×2 (16:39→17:54)
[2018-01-14 17:17] LABS: ALT (SGPT) 16 U/L (8-55); AST (SGOT) 19 U/L (5-34); Albumin 4.7 g/dL (3.5-5.0); Alkaline Phosphatase 88 U/L (40-150); Anion Gap 14 mmol/L (10-20); BUN (Urea Nitrogen) 13 mg/dL (8.9-20.6); Bilirubin, Total 0.8 mg/dL (0.2-1.2); Calc. Creatinine Clearance 0 mL/min (70-130); Calcium 10.2 mg/dL (7.8-10.44); Carbon Dioxide 19 mmol/L (22-29); Chloride 107 mmol/L (98-107); Estimated GFR-MDRD Greater than 90; Globulin 3.1 g/dL (2.4-3.5); Glucose 105 mg/dL (70-105); Potassium 3.4 mmol/L (3.5-5.1); Protein, Total 7.8 g/dL (6.0-8.3); Sodium 137 mmol/L (136-145)
[2018-01-14 17:33] LABS: Bilirubin Negative (Negative); Blood, Urine Moderate (Negative); Clarity Clear (Clear); Glucose, Urine (Dipstick) Negative (Negative); Leukocyte Negative (Negative); Nitrite Negative (Negative); Protein, Urine (Dipstick) 30 mg/dL (Neg-Trace); Specific Gravity, Urine 1.025 (1.005-1.030); Urobilinogen 0.2 mg/dL (0.2-1.0); pH, Urine 5.5 (5.0-9.0)
[2018-01-14 17:34] LABS: Hemoglobin 14.4 g/dL (14.0-18.0); Mean Corpuscular HGB CONC 33.4 g/dL (32.0-36.0); Mean Corpuscular Hemoglobin 30.8 pg (27.0-31.0); Mean Corpuscular Volume 92.1 fL (78.0-98.0); Mean Platelet Volume 7.7 fL (7.4-10.4); Platelet Count 312 thou/uL (130-400); RBC Distribution Width 11.3 % (11.5-14.5); Red Blood Cell (RBC) Count 4.68 mill/uL (4.70-6.10); White Blood Cell (WBC) Count 21.1 thou/uL (4.8-10.8)
[2018-01-14 17:36] LABS: Band 10 % (5-11); Lymphocytes 4 % (21-51); MDiff Complete? YES; Monocytes 4 % (0-10); Neutrophil 82 % (42-75); PLT Morphology Comment Appears Adequate; RBC Morphology Normal
[2018-01-14] MEDS ORDERED: Ibuprofen 200 MG TAB ONE (17:36)
[2018-01-14 17:37] LABS: Amphetamine Not Detected (NotDetected); Barbiturates Screen Not Detected (NotDetected); Benzodiazepine Screen Not Detected (NotDetected); Cocaine Metabolite Screen Not Detected (NotDetected); Medtox Control Line Valid? VALID (VALID); Methadone Not Detected (NotDetected); Methamphetamine Not Detected (NotDetected); Opiate Screen Not Detected (NotDetected); Oxycodone Screen Not Detected (NotDetected); Phencyclidine (PCP) Not Detected (NotDetected); THC/Cannabinoid Screen Detected (NotDetected); Tricyclic Screen Not Detected (NotDetected)
[2018-01-14 17:48] LABS: Bacteria/HPF None Seen HPF (None Seen); Squamous Epithelial 0-3 HPF (0-3); WBC/HPF None Seen HPF (0-3)
--- NOTE | 2018-01-14 18:39 | RAD ---
CHEST TWO VIEWS: 01/14/18 COMPARISON: 05/23/16 HISTORY: Cough. FINDINGS: Normal cardiac silhouette. Pulmonary vessels and hilum are normal. Costophrenic angles are clear. Pat erin interstitial opacities in the lung bases. Possible focal nodule in the right lung base. Nodule me asures approximately 1 cm. No pneumothorax or osseous abnormalities. IMPRESSION: Presumed interstitial infiltrates in the lung bases. Questionable right lower lobe nodule. Followup c hest radiograph in one month is recommended to ensure resolution. POS: PPP
== END 2018-01-14 18:50 | disposition home or self-care (01) ==
LOC: NAV ERS 16:24
DX: K52.9 Noninfective gastroenteritis and colitis, unspecified (principal); J20.9 Acute bronchitis, unspecified; F17.210 Nicotine dependence, cigarettes, uncomplicated
CPT/HCPCS: 71046; 80053; 80306; 81003; 81015; 85025; 96361; 96374; 99406; J2405; J7050

== ENCOUNTER 2018-08-21 20:01 | Emergency (ER) | payer SELFPAY ==
[2018-08-21] MEDS ORDERED: Ibuprofen 200 MG TAB ONE (20:11)
== END 2018-08-21 20:31 | disposition home or self-care (01) ==
LOC: NAV ERS 20:01
DX: J11.1 Influenza due to unidentified influenza virus with other respiratory manifestations (principal); F31.9 Bipolar disorder, unspecified; F20.9 Schizophrenia, unspecified; F17.210 Nicotine dependence, cigarettes, uncomplicated; G43.909 Migraine, unspecified, not intractable, without status migrainosus
CPT/HCPCS: 99281